=== PATIENT | female | born 1940 | race Two or more races ===

== ENCOUNTER 2025-07-18 08:06 | Inpatient (IN) | payer OTHER ==
[~2025-07-18] VITALS: Ht 167.6 cm; Wt 77.2 kg
[2025-07-18] VITALS (13 sets, daily range): BP systolic 103–162; BP diastolic 68–83; PULSE 58–68; RESP 11–18; TEMP 97.6–98.2; O2SAT 94–100
[~2025-07-18 08:06] MED LIST: AMLO1TAB22 PO; LEFL20TA PO; LOSA-534 PO; MELA5TAB10 PO; WARF-110 PO
[2025-07-18 10:38] LABS: INR 1.18 (0.9-1.15); Partial Thromboplastin Time 26.9 SEC (24.5-34.5); Prothrombin Time 12.3 sec (9.3-11.8)
[2025-07-18] MEDS: VANCOMYCIN 1GM/250ML KIT 250 ML IV ONE (12:40)
[2025-07-18] MEDS: MIDAZOLAM HCL 2MG/2ML 2ml VIAL (1mg/ml) ONE (12:40)
[2025-07-18] MEDS: fentaNYL CITRATE 100 MCG/2 ML VL ONE (12:40)
[2025-07-18] MEDS: VANCOMYCIN HCL 1000 MG VL ONE (12:41)
[2025-07-18] MEDS: IODIXANOL 320MG/ML 100ML BTL IV ONE (12:44)
[2025-07-18] MEDS: LIDOCAINE 2%HCL (LOCAL ANESTH.) INJ 20ML MDV ONE ×2 (12:57→12:59)
[2025-07-18] MEDS: hydrALAZINE HCL 20 MG/ML VL ONE (13:00)
--- NOTE | 2025-07-18 14:02 | DVHOP2 ---
Operative Report - 2 Report Details Date: 07/18/25 Preop Diagnosis: Sick sinus syndrome tachy-aracely events Postop Diagnosis: Successful placement of dual-chamber pacemaker Surgeon: Susan Loyd MD Electronics Engineering Technologist: Conscious sedation Anesthesiologist: Conscious sedation Anesthesia: Mac, Local Implant: Permanent pacemaker by [employer] Consent: The patient was informed of the risks and benefits of the procedure. These inc lude but are not limited to complications of anesthesia, postoperative infection, incomplete relief of symptoms, recurrence of symptoms, damage to blood vessels, nerves and tendons, deep venous thrombosis, pulmonary embolism and possible need for repeat surgery in the future. Complications: No complications Findings: Sick sinus syndrome, tachy-aracely events Indications for Surgery: Sick sinus syndrome Name of Procedure Performed Permanent pacemaker implantation Procedure Details Procedure Details: Prior local anesthesia with 2% lidocaine to the left pectoral area and full informed consent obtained the patient was prepped and draped in usual fashion followed by an incision over the left pectoral area and dissection planes with the electrocautery and blunt dissection. We formed a pocket under the pectoral fascia and placed an antibiotic filled Ray-Andriy sponge within it. Venogram was performed via the left antecubital vein subclavian vein was visualized. We then placed a cook needle into the subclavian vein and placed a nine [place] sheath into the subclavian vein. Active fixation electrodes were placed without difficulty these were sutured with 0 Ethibond after adequate capture and sensitivity thresholds were obtained. We then flushed the pocket as mentioned and connected the generator. We then closed the pocket with 3-0 Vicryl and 4-0 Monocryl was used to close the skin. No complications. Fluoroscopic guidance was used throughout the procedure. The right atrial lead is a Solia S45 by [employer]. Serial [id number]. This yielded a P-wave of 2.1 volts at 0.7 volts 0.4 milliseconds and 390 Ohms of impedance. The ventricular lead is a Solia S 53 serial [id number] also by [employer]. The right ventricular R-wave was 15 at 0.6 volts 0.4 milliseconds and 740 Ohms of impedance. The generator is a model [id number], Amvia edge DRT-T serial number [id number] by [employer]. The settings are as follows DDD R mode at a rate of 60/130. Av delay is 180/140 milliseconds. PVARP at 275 milliseconds. RA sensitivity 0.5 mV maximum symptom sensitivity. RV sensitivity 2.0 mV maximum sensitivity. RA output 4 volts at 0.4 milliseconds with an RV output of 4 volts at 0.4 milliseconds. Patient tolerated the procedure well there were no complications Impression: Successful placement of a DDD permanent pacemaker for sick sinus syndrome and tachy-aracely events Recommendations: Continue current medical therapy. We will follow up in 4-6 weeks. Condition Good Disposition Still a Patient Date of Service: Jul 18, 2025 Billing Provider: SUSAN LOYD Sr., MD Cardiology Common Codes: 66524-[id number] INP/OBS CARE (High) Card. Pacer Implants/Gen [id number] DUAL LEAD PACER SUSAN LOYD Sr., MD Jul 18, 2025 14:02
[2025-07-18] MEDS ORDERED: NITROGLYCERIN 0.4 MG SL TAB SL PRN (14:15)
[2025-07-18] MEDS ORDERED: MORPHINE SULFATE INJ 2 MG/ml SYRG IV PRN (14:15)
--- NOTE | 2025-07-18 14:24 | DVH ---
EXAM: XY CHEST XRAY 1 VIEW Indication: pacemaker placement Technique: Single frontal view of the chest was obtained Comparison: XR CHEST 2 VIEW on DOS: 07/09/25, CT CHEST WO on DOS: 07/09/25, CT CHEST WO on DOS: 03/27/25 FINDINGS: Lines and Tubes: Cardiac pacemaker projects over left chest wall. Lungs: No focal consolidation. Pleura: No effusion. No pneumothorax. Cardiomediastinal contours: Unremarkable Bones: No acute osseous abnormality. IMPRESSION: No acute cardiopulmonary disease.
[2025-07-18] MEDS: HYDROcodone-ACET 5/325MG TAB PO PRN (14:57)
[2025-07-18] MEDS: HYDROmorphone HCL 2 MG/ML VL/or syr IV ONE (18:31)
[2025-07-19] VITALS (9 sets, daily range): BP systolic 135–157; BP diastolic 79–98; PULSE 59–67; RESP 16–19; TEMP 97.7–98.4; O2SAT 91–96
--- NOTE | 2025-07-19 06:25 | DVH ---
CHEST RADIOGRAPH Indication: POST PACEMAKER PLACEMENT Technique: Single frontal view of the chest was obtained Comparison: XY CHEST XRAY 1 VIEW on DOS: 07/18/25 FINDINGS: Lines and Tubes: There is a dual-chamber pacemaker with right atrial and ventricular leads. Lungs: No focal consolidation. Pleura: No effusion. Left apical density concerning for pneumothorax. Cardiomediastinal contours: Unremarkable Bones: No acute osseous abnormality. IMPRESSION: 1. Suspect left apical pneumothorax. 2. Dual chamber pacemaker with right atrial and ventricular leads.
[2025-07-19] MEDS: LEFLUNOMIDE 20 MG PO SCH (08:38)
[2025-07-19] MEDS: LOSARTAN POTASSIUM 50 MG TAB PO SCH (08:38)
--- NOTE | 2025-07-19 10:23 | ECG ---
[facility] Test Date: 2025-07-19 Test Time: 07:00:23 Pat Name: DAISY ORTIZ Department: Respiratoy Room: [facility]6T B Gender: F Cnc Lathe Machine Operator: TF : 1940 Requested By: SUSAN LOYD Order Number: [id number] Reading MD: Susan Loyd Measurements Intervals [place] Rate: 64 P: 79 DE: 162 QRS: -6 QRSD: 123 T: 16 QT: 423 QTc: 437 Interpretive Statements Sinus rhythm Right bundle branch block Electronically Signed On 07-19-2025 14:39:47 PDT by Susan Loyd Please click the below link to view image of tracing.
--- NOTE | 2025-07-19 10:37 | ECG ---
[facility] Test Date: 2025-07-18 Test Time: 13:52:15 Pat Name: DAISY ORTIZ Department: Room: 0286T B Gender: F Resident Care Provider: : 1940 Requested By: SUSAN LOYD Order Number: [id number] Reading MD: Susan Loyd Measurements Intervals [place] Rate: 60 P: 105 SD: 148 QRS: -16 QRSD: 112 T: 10 QT: 430 QTc: 430 Interpretive Statements Electronic atrial pacemaker Incomplete right bundle branch block Electronically Signed On 07-19-2025 14:39:22 PDT by Susan Loyd Please click the below link to view image of tracing.
--- NOTE | 2025-07-19 14:03 | DVHINCON2 ---
Date of service: Jul 19, 2025 Reason for Consultation Medical management post pacemaker placement History of Present Illness This is a 84-year-old female with a hypertension, sick sinus syndrome, chronic atrial fibrillation admitted to the hospital and underwent successful pacemaker placement for tachy-aracely syndrome. She is admitted and postop hospitalist consultation has been requested for medical management. Currently patient complains of mild discomfort at pacemaker site. Otherwise other review of systems reviewed normal. Past Medical History Hypertension, atrial fibrillation, sick sinus syndrome Past Surgical History None significant Family History: Patient reports no known family medical history. Allergies: Coded Allergies: Azithromycin (Verified Allergy, Unknown, Rash/ Throat closes, 07/13/25) Home Meds Reported Medications Losartan Potassium (Losartan Potassium) 50 Mg Tab, 50 MG PO DAILY for HTN for 30 Days, MG 07/13/25 Melatonin-Pyridoxine (MELATONIN) 1 Tab Tab, 5 MG PO for INSOMNIA, TAB 07/13/25 Leflunomide (Arava) 20 Mg Tab, 1 TAB PO DAILY for arthritis, #30 TAB 07/13/25 Amlodipine Besylate (Amlodipine Besylate) 5 Mg Tab, 5 MG PO DAILY for HTN, MG 07/13/25 Warfarin Sodium (Warfarin Sodium) 2.5 Mg Tab, 2.5 MG PO DAILY for STOP ON 07/15 for 30 Days, MG 07/13/25 Current Medications Current Medications Medications (Trade) Dose Ordered Sig/Augutsus Route PRN Reason Start Time Stop Time Status Last Admin Nitroglycerin (Ntrostat Sublingual) 0.4 mg Q5MINP PRN SL FOR CHEST PAIN 07/18/25 14:15 Morphine Sulfate 2 mg Q30M PRN IV FOR CHEST PAIN 07/18/25 14:15 Amlodipine Besylate (Norvasc Tablet) 5 mg DAILY PO 07/19/25 10:00 07/19/25 08:37 Losartan Potassium (Cozaar Tablet) 50 mg DAILY PO 07/19/25 10:00 07/19/25 08:38 Patient Own Medication 1 tab DAILY PO 07/19/25 10:00 Acetaminophen/ Hydrocodone Bitart ([place] 5/325MG Tab) 1 tab Q4HPRN PRN PO MILD PAIN (1-3 PAIN SCALE) 07/18/25 15:00 07/19/25 12:00 Review of Systems No chest pain or shortness for breath. No headache dizziness or lightheadedness. Other review of systems reviewed normal. Vital Signs Vital Signs Date Time Temp Pulse Resp B/P (MAP) Pulse Ox O2 Delivery O2 Flow Rate FiO2 07/19/25 09:00 98.4 59 18 157/80 (105) 94 98.4 07/19/25 07:51 Room Air* 0 21 Physical Exam Pleasant female comfortable in bed. Alert awake oriented x3. HEENT neck no JVD. Heart regular rate and rhythm S1 and S2. Lungs fair air movement poor inspiratory effort no rales wheezes. Abdomen soft nontender positive bowel sounds. Extremities no edema positive pulses. Labs/Diagnostic Data Labs Test 07/18/25 10:00 Range/Units Prothrombin Time 12.3 H 9.3-11.8 sec Prothrombin Time INR 1.18 H 0.9-1.15 Activated Partial Thromboplast Time 26.9 24.5-34.5 SEC Assessment Clinically stable. Patient takes Coumadin for her AFib. Continue to hold for another 24-48 hours till the pacemaker site heals. Empiric antibiotics. Pain management. Resume her blood pressure medications as blood pressure tolerates. Otherwise continue rest of supportive care and treatment. Further clinical management per clinical course. Encouraged activity and ambulation. Discussed with the patient and nurse regarding care plan. Problems(with codes): (1) Status post placement of cardiac pacemaker (2) Hypertension (3) Chronic atrial fibrillation Plan discussed with: Patient MEAGAN BOUCHER MD Jul 19, 2025 14:03
[2025-07-19] MEDS ORDERED: MELATONIN 5 MG TAB PO SCH (21:30)
[2025-07-19] MEDS: DOXYCYCLINE 100 MG TAB/CAP PO SCH (22:02)
[2025-07-19] MEDS: MELATONIN 5 MG TAB PO SCH (22:02)
[2025-07-20 00:38] VITALS: BP 135/81; PULSE 69; RESP 19; TEMP 98.4; O2SAT 94
[2025-07-20 04:51] VITALS: BP 137/76; PULSE 67; RESP 18; TEMP 98.9; O2SAT 92
[2025-07-20 06:43] LABS: Chloride 104 mmol/L (98-107); Potassium 4.0 mmol/L (3.5-5.1); Sodium 137 mmol/L (136-145)
[2025-07-20 06:44] LABS: Anion Gap 7 (5-15); Carbon Dioxide 26 mmol/L (20-31)
[2025-07-20 06:45] LABS: Calcium 9.5 mg/dL (8.7-10.4)
[2025-07-20 06:49] LABS: Glucose 94 mg/dL (74-106)
[2025-07-20 06:50] LABS: BUN/Creatinine Ratio 13.6 (10.0-20.0); Blood Urea Nitrogen 11 mg/dL (9-23)
[2025-07-20 06:52] LABS: Hematocrit 42.4 % (36.0-46.0); Hemoglobin 14.6 g/dL (12.2-16.2); Mean Corpuscular Hemoglobin 34.4 pg (28.0-32.0); Mean Corpuscular Volume 100.0 fL (80.0-100.0); Nucleated Red Blood Cells % 0.2 %
[2025-07-20 08:00] VITALS: PULSE 67
[2025-07-20 08:42] VITALS: BP 126/80; PULSE 68; RESP 17; TEMP 96.9; O2SAT 93
[2025-07-20] MEDS: MORPHINE SULFATE INJ 2 MG/ml SYRG IV PRN (10:10)
[2025-07-20 13:28] VITALS: BP 132/78; PULSE 66; RESP 20; TEMP 98.3; O2SAT 93
[2025-07-20] MEDS ORDERED: SENN8.6T26 PO (13:53)
[2025-07-20] MEDS ORDERED: HYDR-4902 PO (13:53)
[2025-07-20] MEDS ORDERED: DOXY100C79 PO (13:53)
[2025-07-20] MEDS: LACTULOSE 20Gm/30ML SOLN PO ONE (14:00)
--- NOTE | 2025-07-20 14:10 | DVH ---
CHEST RADIOGRAPH Indication: follow up for pacemaker Technique: Single frontal view of the chest was obtained COMPARISON: XY CHEST XRAY 1 VIEW on DOS: 07/19/25, XY CHEST XRAY 1 VIEW on DOS: 07/18/25, XR CHEST 2 VIEW on DOS: 07/09/25, CT CHEST WO on DOS: 07/09/25, CT CHEST WO on DOS: 03/27/25 FINDINGS: Lines and Tubes: Left chest pacemaker Lungs: Clear Pleura: No effusion. No pneumothorax. Cardiomediastinal contours: Unremarkable Bones: Unremarkable IMPRESSION: No acute disease.
--- NOTE | 2025-07-20 14:24 | DVHDS2 ---
Discharge Summary Date of Admission Jul 18, 2025 at 14:08 Date of Discharge: Jul 20, 2025 Labs/Diagnostic Data: Laboratory Results Test 07/20/25 05:23 07/18/25 10:00 White Blood Count 3.7 10^3/uL (4.4-10.8) Red Blood Count 4.24 10^6/uL (4.0-5.20) Hemoglobin 14.6 g/dL (12.2-16.2) Hematocrit 42.4 % (36.0-46.0) Mean Corpuscular Volume 100.0 fL (80.0-100.0) Mean Corpuscular Hemoglobin 34.4 pg (28.0-32.0) Mean Corpuscular Hemoglobin Concent 34.4 g/dL (32.0-36.0) Red Cell Distribution Width 14.1 % (11.8-14.3) Platelet Count 153 10^3/uL (140-450) Mean Platelet Volume 9.0 fL (6.9-10.8) Neutrophils (%) (Auto) 65.5 % (37.0-80.0) Lymphocytes (%) (Auto) 18.4 % (10.0-50.0) Monocytes (%) (Auto) 10.3 % (0.0-12.0) Eosinophils (%) (Auto) 4.8 % (0.0-7.0) Basophils (%) (Auto) 1.0 % (0.0-2.0) Neutrophils # (Auto) 2.5 10 ^3/uL (1.6-8.6) Lymphocytes # (Auto) 0.7 10 ^3/uL (0.4-5.4) Monocytes # (Auto) 0.4 10 ^3/uL (0-1.3) Eosinophils # (Auto) 0.2 10 ^3/uL (0-0.8) Basophils # (Auto) 0 10 ^3/uL (0-0.2) Nucleated Red Blood Cells 0.2 % Sodium Level 137 mmol/L (136-145) Potassium Level 4.0 mmol/L (3.5-5.1) Chloride Level 104 mmol/L (98-107) Carbon Dioxide Level 26 mmol/L (20-31) Anion Gap 7 (5-15) Blood Urea Nitrogen 11 mg/dL (9-23) Creatinine 0.81 mg/dL (0.550-1.02) Glomerular Filtration Rate Calc 72 mL/min (>90) BUN/Creatinine Ratio 13.6 (10.0-20.0) Serum Glucose 94 mg/dL (74-106) Calcium Level 9.5 mg/dL (8.7-10.4) Prothrombin Time 12.3 sec (9.3-11.8) Prothrombin Time INR 1.18 (0.9-1.15) Activated Partial Thromboplast Time 26.9 SEC (24.5-34.5) Other Laboratory Tests 07/20/25 05:23 Brief Hx & Hospital Course: This is a 84-year-old female with a hypertension, sick sinus syndrome, chronic atrial fibrillation admitted to the hospital and underwent successful pacemaker placement for tachy-aracely syndrome. She is admitted and postop hospitalist consultation has been requested for medical management. Currently patient complains of mild discomfort at pacemaker site. Otherwise other review of systems reviewed normal. Post pacemaker placement she is doing well. Pain is tolerable with the narcotic therefore she is requesting [place] to be given to home. Discussed with the her regarding narcotic side effects and advised to use Narcan as needed for severe drowsiness. Patient has constipation issues therefore she is also prescribed laxative. Otherwise post pacemaker chest x-ray today does not reveal any pneumothorax. Patient is clinically stable. Therefore she has been discharged home. I have talked with the patient regarding her hospital diagnosis, procedure she has done, discharge instructions follow-up plan of care. She has verbalized understanding of these and agree with the care plan as outlined. Operations or Procedures Operative Report - 2 Report Details Date: 07/18/25 Preop Diagnosis: Sick sinus syndrome tachy-aracely events Postop Diagnosis: Successful placement of dual-chamber pacemaker Surgeon: Praveen Loyd MD Martial Arts Instructor: Conscious sedation Anesthesiologist: Conscious sedation Anesthesia: Mac, Local Implant: Permanent pacemaker by [employer] Consent: The patient was informed of the risks and benefits of the procedure. These include but are not limited to complications of anesthesia, postoperative infection, incomplete relief of symptoms, recurrence of symptoms, damage to blood vessels, nerves and tendons, deep venous thrombosis, pulmonary embolism and possible need for repeat surgery in the future. Complications: No complications Findings: Sick sinus syndrome, tachy-aracely events Indications for Surgery: Sick sinus syndrome Name of Procedure Performed Permanent pacemaker implantation Procedure Details Procedure Details: Prior local anesthesia with 2% lidocaine to the left pectoral area and full informed consent obtained the patient was prepped and draped in usual fashion followed by an incision over the left pectoral area and dissection planes with the electrocautery and blunt dissection. We formed a pocket under the pectoral fascia and placed an antibiotic filled Ray-Andriy sponge within it. Venogram was performed via the left antecubital vein subclavian vein was visualized. We then placed a cook needle into the subclavian vein and placed a nine [place] sheath into the subclavian vein. Active fixation electrodes were placed without difficulty these were sutured with 0 Ethibond after adequate capture and sensitivity thresholds were obtained. We then flushed the pocket as mentioned and connected the generator. We then closed the pocket with 3-0 Vicryl and 4-0 Monocryl was used to close the skin. No complications. Fluoroscopic guidance was used throughout the procedure. The right atrial lead is a Solia S45 by [employer]. Serial [id number]. This yielded a P-wave of 2.1 volts at 0.7 volts 0.4 milliseconds and 390 Ohms of impedance. The ventricular lead is a Solia S 53 serial [id number] also by [employer]. The right ventricular R-wave was 15 at 0.6 volts 0.4 milliseconds and 740 Ohms of impedance. The generator is a model 097793, Amvia edge DRT-T serial number [id number] by [employer]. The settings are as follows DDD R mode at a rate of 60/130. Av delay is 180/140 milliseconds. PVARP at 275 milliseconds. RA sensitivity 0.5 mV maximum symptom sensitivity. RV sensitivity 2.0 mV maximum sensitivity. RA output 4 volts at 0.4 milliseconds with an RV output of 4 volts at 0.4 milliseconds. Patient tolerated the procedure well there were no complications Impression: Successful placement of a DDD permanent pacemaker for sick sinus syndrome and tachy-aracely events Recommendations: Continue current medical therapy. We will follow up in 4-6 weeks. Condition Good Condition at Discharge: Stable Final Diagnosis/Problems List Successful placement of dual-chamber pacemaker Discharge Disposition: Home Discharge Instruct/Medications Diet: Consistent carbohydrate, Cardiac 2g Na,low cholest Activity: No Restrictions, As Tolerated Activity comment: No lifting left arm above shoulder for one week Follow Up/Referral: Dr. Loyd employee development manager next week Medications: As prescribed Scheduled Amlodipine Besylate (Amlodipine Besylate), 5 MG PO DAILY, (Reported) Doxycycline (Monohydrate) (Doxycycline), 100 MG PO BID Leflunomide (Arava), 1 TAB PO DAILY, (Reported) Losartan Potassium (Losartan Potassium), 50 MG PO DAILY, (Reported) Senna (Senna Laxative), 8.6 MG PO QPM Warfarin Sodium (Warfarin Sodium), 2.5 MG PO DAILY, (Reported) Scheduled PRN Hydrocodone-Acetaminophen (Hydrocodone Bitartrate/AC 5-325 mg), 1 TAB PO Q6HPRN PRN Miscellaneous Medications Melatonin-Pyridoxine (Melatonin), 5 MG PO, (Reported) Discharge Statement: "Patient was advised to return to the ER or call 911 if any headaches, dizziness, shortness of breath, chest pain, abdominal pain, bleeding, fevers, or worsening of medical condition. Patient was counseled about treatment plan, medications, possible side effects, patientverbalized understanding. All questions were answered to the best of my ability. This discharge took greater then 30 minutes in planning, reviewing documentation, counseling the patient, and discussing with other team members." ASSESSMENT ASSESSMENT Assessment Successful placement of dual-chamber pacemaker MEAGAN BOUCHER MD Jul 20, 2025 14:24
[2025-07-20] MEDS ORDERED: NALO4SPR2 (14:36)
[2025-07-20 14:49] VITALS: BP 126/80; TEMP 36.8
== END 2025-07-20 17:06 | disposition home or self-care (01) | DRG 243 ==
LOC: CATH 08:06 → OVERFLOW 14:08 → TELE-WESTW 17:41
PROVIDERS: ADMIT Internal Medicine; ATTEND Internal Medicine
PROC: 0JH606Z Insertion of Pacemaker, Dual Chamber into Chest Subcutaneous Tissue and Fascia, Open Approach (ICD-10-PCS; principal; 2025-07-18)
PROC: 02H63JZ Insertion of Pacemaker Lead into Right Atrium, Percutaneous Approach (ICD-10-PCS; 2025-07-18)
PROC: 02HK3JZ Insertion of Pacemaker Lead into Right Ventricle, Percutaneous Approach (ICD-10-PCS; 2025-07-18)
DX: I49.5 Sick sinus syndrome (principal); I48.20 Chronic atrial fibrillation, unspecified; I10 Essential (primary) hypertension; K59.00 Constipation, unspecified; Z88.1 Allergy status to other antibiotic agents; Z95.0 Presence of cardiac pacemaker; Z79.01 Long term (current) use of anticoagulants
CPT/HCPCS: 33208; 36415; 71045; 80048; 85025; 85610; 85730; 93005; 97163; 99152; G0378; J2250; Q9967